=== PATIENT | female | born 2000 | race Caucasian/White ===

== ENCOUNTER 2024-02-10 22:18 | Emergency (ER) | payer OTHER ==
[2024-02-10 22:23] VITALS: BP 107/61; PULSE 100; RESP 18; TEMP 98.4; BMI 19.5
[2024-02-10 23:24] LABS: EPI CELLS 7 /uL (0-25.1); HYALINE CASTS 0 /uL (0-3.1); URINE APPEARANCE CLEAR; URINE BACTERIA 119 /uL (0-1359); URINE BILIRUBIN NEGATIVE (NEGATIVE); URINE COLOR YELLOW; URINE GLUCOSE (UA) NEGATIVE (NEGATIVE); URINE KETONE NEGATIVE (NEGATIVE); URINE LEUK ESTERASE TRACE (NEGATIVE); URINE NITRITE NEGATIVE (NEGATIVE); URINE PROTEIN NEGATIVE (NEGATIVE); URINE RBC 10 /uL (0-23.9); URINE UROBILINOGEN 0.2 mg/dL (0.2-1.0); URINE WBC 11 /uL (0-25.8)
[2024-02-10 23:47] LABS: THROAT:GRP A STREP NOT DETECTED (NOTDETECTED)
== END 2024-02-11 | disposition home or self-care (01) ==
LOC: JER 22:18
DX: J06.9 Acute upper respiratory infection, unspecified (principal); B34.9 Viral infection, unspecified; R07.0 Pain in throat; J32.9 Chronic sinusitis, unspecified; B96.89 Other specified bacterial agents as the cause of diseases classified elsewhere; R05.9 Cough, unspecified; Z20.822 Contact with and (suspected) exposure to COVID-19
CPT/HCPCS: 0241U-QW; 81003; 87086; 87651; 99284-25

== ENCOUNTER 2024-02-17 20:09 | Emergency (ER) | payer OTHER ==
[2024-02-17 21:29] LABS: BASO % 0.5 % (0-2.0); EOS % 2.1 % (0-4.5); HEMATOCRIT 30.6 % (32.4-45.2); HEMOGLOBIN 10.5 GM/dL (10.7-15.3); LYMPH % 22.9 % (8-40); MCH 30.7 pg (25.7-33.7); MCHC 34.4 g/dl (32.0-36.0); MEAN CELL VOLUME 89.1 fl (80-96); MEAN PLT VOLUME 7.9 fl (7.5-11.1); MONO % 6.5 % (3.8-10.2); PLATELET COUNT 257 10^3/uL (134-434); RBC 3.43 M/mm3 (3.60-5.2); RDW 13.3 % (11.6-15.6); WHITE BLOOD COUNT 8.3 K/mm3 (4.0-10.0)
[2024-02-17 21:41] LABS: POTASSIUM 4.1 mmol/L (3.5-5.1)
[2024-02-17 21:43] LABS: CALCIUM 8.9 mg/dL (8.5-10.1)
[2024-02-17 21:44] LABS: ALBUMIN 2.9 g/dl (3.4-5.0); BLOOD UREA NITROGEN 5.1 mg/dL (7-18)
[2024-02-17 21:47] LABS: CREATININE 0.5 mg/dL (0.55-1.3)
[2024-02-17 21:48] LABS: BILIRUBIN,TOTAL 0.2 mg/dL (0.2-1); TOT PROT 6.2 g/dl (6.4-8.2)
[2024-02-18] MEDS ORDERED: ALBUTEROL SO4 HFA INHALER IH ONE (00:08)
[2024-02-18] MEDS: ALBUTEROL SO4 HFA INHALER IH ONE (00:14)
[2024-02-18 00:15] VITALS: BP 115/62; PULSE 84; RESP 17
[2024-02-18 00:16] VITALS: TEMP 98.5
== END 2024-02-18 00:15 | disposition home or self-care (01) ==
LOC: JER 20:09
DX: O99.511 Diseases of the respiratory system complicating pregnancy, first trimester (principal); R05.9 Cough, unspecified; R07.9 Chest pain, unspecified; Z3A.13 13 weeks gestation of pregnancy
CPT/HCPCS: 36415; 71275-TC; 80053; 85025; 99284-25; Q9967

== ENCOUNTER 2024-08-27 07:02 | Inpatient (IN) | payer OTHER ==
[2024-08-27] MEDS: ELECTROLYTE-148 SOLN 1,000 ML IV SCH (07:15)
[2024-08-27 07:52] LABS: BASO % 0.4 % (0-2.0); EOS % 0.9 % (0-4.5); HEMATOCRIT 33.6 % (32.4-45.2); HEMOGLOBIN 11.5 GM/dL (10.7-15.3); LYMPH % 16.8 % (8-40); MCHC 34.1 g/dl (32.0-36.0); MEAN CELL VOLUME 87.8 fl (80-96); MEAN PLT VOLUME 8.3 fl (7.5-11.1); MONO % 5.2 % (3.8-10.2); NEUT % 76.7 % (42.8-82.8); PLATELET COUNT 192 10^3/uL (134-434); RBC 3.83 M/mm3 (3.60-5.2); RDW 14.2 % (11.6-15.6); WHITE BLOOD COUNT 8.3 K/mm3 (4.0-10.0)
[2024-08-27 08:08] LABS: POTASSIUM 3.8 mmol/L (3.5-5.1)
[2024-08-27 08:09] LABS: CALCIUM 8.5 mg/dL (8.5-10.1)
[2024-08-27 08:10] LABS: BLOOD UREA NITROGEN 5.8 mg/dL (7-18)
[2024-08-27 08:12] VITALS: BMI 31.4
[2024-08-27 08:13] LABS: CREATININE 0.5 mg/dL (0.55-1.3)
[2024-08-27 08:18] LABS: INR 0.89 (0.83-1.09); PROTHROMBIN TIME (PATIENT) 10.1 SEC (9.7-13.0)
[2024-08-27 08:21] LABS: ACTIVATED PTT 25.3 SECONDS (25.2-36.5)
[2024-08-27] MEDS ORDERED: ACETAMINOPHEN INJECTION 100 ML ONE (08:55)
[2024-08-27] MEDS: ACETAMINOPHEN 1000 MG/100 ML BAG IVPB ONE (08:55)
[2024-08-27] MEDS ORDERED: AZITHROMYCIN IVPB 500 MG/250 ML BAG IVPB ONE (09:22)
[2024-08-27] MEDS: AZITHROMYCIN IVPB 500 MG/250 ML BAG IVPB ONE (09:30)
[2024-08-27] MEDS: FERROUS SO4 325 MG TABLET (FP) PO SCH (10:18)
[2024-08-27] MEDS: PRENATAL VITAMINS W/ FOLIC ACID TABLET (FP) PO SCH (10:19)
[2024-08-27] MEDS ORDERED: AMPICILLIN SODIUM 2 GM VIAL ONE (10:23)
[2024-08-27] MEDS: AMPICILLIN - 2 GM in SODIUM CHLORIDE 100 ML IVPB ONE (10:34)
[2024-08-27 12:04] LABS: SYPHILIS W/ RPR CONF NON-REACTIVE (NONREACTIVE)
[2024-08-27 12:38] LABS: HIV INTERPRETATION NEGATIVE (NEGATIVE)
[2024-08-27 13:33] LABS: POC NITRAZINE POS
[2024-08-27] MEDS ORDERED: FENTANYL CITRATE/PF 50 MCG/ML VIAL ONE (13:45)
[2024-08-27] MEDS ORDERED: morphine SULFATE/PF 1 MG/2 ML (2cc Syringe - QUVA) ONE (13:45)
[2024-08-27] MEDS ORDERED: OXYTOCIN 10 UNITS/ML VIAL ONE (14:12)
[2024-08-27 15:02] LABS: CORD BASE EXCESS -0.4 mmol/L (0-2); CORD HCO3 24.6 mmHg (20-29); CORD PCO2 41.4 mmHg (30-78); CORD pH 7.391 (7.14-7.44)
[2024-08-27 15:03] LABS: CORD BASE EXCESS -1.2 mmol/L (0-2); CORD HCO3 25.7 mmHg (20-29); CORD PCO2 51.4 mmHg (30-78); CORD pH 7.316 (7.14-7.44)
[2024-08-27] MEDS ORDERED: OXYTOCIN 20 UNITS in 0.9% NS 20 UNIT/1,000 ML INFUS.BAG IV ONE ×2 (15:08→21:29)
[2024-08-27] MEDS: OXYTOCIN 20 UNITS in 0.9% NS 20 UNIT/1,000 ML INFUS.BAG IV SCH (15:10)
[2024-08-27] MEDS: METHYLERGONOVINE MALEATE 0.2 MG/1 ML AMP IM PRN (15:52)
[2024-08-27] MEDS: CEFAZOLIN 1 GM in DEXTROSE 5%-WATER - 50 ML IVPB SCH (18:20)
[2024-08-27] MEDS: IBUPROFEN 800 MG/8 ML IJ IVPB PRN (23:01)
[2024-08-27] MEDS: SIMETHICONE 80 MG TAB.CHEW (FP) PO PRN (23:02)
[2024-08-28] MEDS: ACETAMINOPHEN 325 MG TABLET (FP) PO PRN (01:59)
[2024-08-28 06:57] LABS: BASO % 0.5 % (0-2.0); EOS % 0.7 % (0-4.5); HEMATOCRIT 30.8 % (32.4-45.2); HEMOGLOBIN 10.2 GM/dL (10.7-15.3); LYMPH % 19.7 % (8-40); MCH 29.9 pg (25.7-33.7); MCHC 33.1 g/dl (32.0-36.0); MEAN CELL VOLUME 90.3 fl (80-96); MEAN PLT VOLUME 8.4 fl (7.5-11.1); MONO % 6.4 % (3.8-10.2); NEUT % 72.7 % (42.8-82.8); PLATELET COUNT 163 10^3/uL (134-434); RBC 3.41 M/mm3 (3.60-5.2); RDW 14.1 % (11.6-15.6)
[2024-08-28] MEDS: IBUPROFEN 600 MG TABLET (FP) PO PRN (08:06)
[2024-08-28] MEDS: oxyCODONE HCL 5 MG TABLET PO PRN (11:59)
[2024-08-28] MEDS: SENNOSIDES/DOCUSATE COMBO (SENNA PLUS) TABLET (UD) PO PRN (20:54)
[2024-08-29] MEDS: oxyCODONE HCL 5 MG TABLET PO PRN (02:21)
[2024-08-29] MEDS: BISACODYL 10 MG SUPP.RECT RC PRN (12:50)
[2024-08-30 07:40] LABS: BASO % 0.5 % (0-2.0); EOS % 1.6 % (0-4.5); HEMATOCRIT 30.1 % (32.4-45.2); LYMPH % 22.5 % (8-40); MCH 29.8 pg (25.7-33.7); MCHC 33.3 g/dl (32.0-36.0); MEAN CELL VOLUME 89.3 fl (80-96); MEAN PLT VOLUME 8.7 fl (7.5-11.1); MONO % 7.3 % (3.8-10.2); NEUT % 68.1 % (42.8-82.8); PLATELET COUNT 179 10^3/uL (134-434); RBC 3.37 M/mm3 (3.60-5.2); RDW 13.9 % (11.6-15.6)
[2024-08-30 10:01] VITALS: BP 118/68; PULSE 86; RESP 17; TEMP 98
== END 2024-08-30 14:45 | disposition home or self-care (01) | DRG 540 ==
LOC: JLDR 07:02 → J3W 17:35
PROVIDERS: ADMIT Obstetrics & Gynecology; ATTEND Obstetrics & Gynecology
PROC: 10D00Z1 Extraction of Products of Conception, Low, Open Approach (ICD-10-PCS; principal; 2024-08-27)
DX: O48.0 Post-term pregnancy (principal); O34.211 Maternal care for low transverse scar from previous cesarean delivery; N85.8 Other specified noninflammatory disorders of uterus; Z3A.41 41 weeks gestation of pregnancy; Z37.0 Single live birth
CPT/HCPCS: 36415; 36600; 59409; 74019-TC-FY; 80048; 82803; 83986-QW; 85025; 85610; 85730; 86780; 86803; 86850; 86900; 86901; 87389; 88307-TC; 94010; J0131